=== PATIENT | male | born 1950 | race Caucasian/White ===

== ENCOUNTER 2023-09-18 11:00 | Day surgery (SDC) | payer OTHER ==
[2023-09-13 15:06] LABS: Absolute Basophils 0.1 K/uL (0-0.5); Absolute Eosinophils 0.2 K/uL (0-0.5); Absolute Lymphocytes (CBC) 2.1 K/uL (0.7-4.9); Absolute Neutrophil 5.5 K/uL (1.8-8.0); Basophils % 0.7 % (0-1.3); Eosinophils % 2.4 % (0-4.4); Hematocrit 43.4 % (39.6-49.0); Hemoglobin 14.5 g/dL (13.6-17.9); Lymphocytes % 23.7 % (15.3-44.8); MCH 29.9 pg (27.0-35.0); MCHC 33.4 g/dL (32.0-36.0); MCV 89.5 fL (80-100); MPV 7.8 fL (7.6-11.3); Monocytes % 11.2 % (3.3-12.3); Platelets 272 thou/uL (152-406); RBC Red Blood Cell Count 4.85 M/uL (4.33-5.43); Red Cell Distribution Width 13.3 % (12.1-15.2)
[2023-09-13 15:15] LABS: PT Prothrombin Time 11.6 SECONDS (9.5-12.5); PTT, Activated Partial Thromb 37.7 SECONDS (24.3-36.9); Protime INR 1.06
[2023-09-13 15:24] LABS: Anion Gap 8.3 mEq/L (5.0-15.0); Potassium 3.3 mEq/L (3.5-5.1)
--- NOTE | 2023-09-13 16:43 | RAD REPORT ---
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 Hypertension COMPARISON: 08/09/2022 and 01/09/2021 TECHNIQUE: PA and lateral views of the chest were obtained. FINDINGS: Stable bilateral streaky opacities most pronounced in the left central lower lung, suggest ing chronic opacification/fibrosis. . Background hyperinflation. Heart size is normal and central vas culature is within normal limits. No pleural effusion or pneumothorax seen. No acute bony finding not ed. IMPRESSION: No acute cardiopulmonary process. No significant interval change.
[2023-09-18] MEDS ORDERED: HEPA 1000U/500MLS 2,000 UNIT/1,000 ML BAG IV ONE (11:32)
[2023-09-18] MEDS ORDERED: FENTANYL CITR 100 MCG/2 ML ONE (11:33)
[2023-09-18] MEDS ORDERED: LIDOCAINE 1% 20 ML MDV ONE (11:33)
[2023-09-18] MEDS ORDERED: ATROPINE SULF 1 MG/10 ML SYR IV ONE (11:33)
[2023-09-18] MEDS ORDERED: MIDAZOLAM HCL 2 MG/2 ML INJ ONE (11:33)
[2023-09-18] MEDS ORDERED: VERAPAMIL HCL 10 MG/4 ML VIAL IV ONE (11:33)
[2023-09-18] MEDS ORDERED: TICAGRELOR 90 MG TABLET PO ONE (11:34)
[2023-09-18] MEDS ORDERED: CLOPIDOGREL 75 MG TABLET ONE (11:34)
[2023-09-18] MEDS ORDERED: HEPARIN 5000 UNIT/ML 1 ML VIAL ONE (11:34)
[2023-09-18] MEDS ORDERED: HEPARIN 10,000 UNIT/10 ML VIAL IV ONE (11:34)
[2023-09-18] MEDS ORDERED: ASPIRIN 325 MG TAB ONE (11:35)
[2023-09-18] MEDS ORDERED: NA CHLORIDE 0.9% 500 ML ONE (11:47)
--- NOTE | 2023-09-18 14:16 | OP ---
Date of Procedure: 09/18/2023 Surgeon: AMISH MAY Procedures Performed: 1.Selective coronary angiogram. 2.Left heart catheterization. Indication: Chest pain and abnormal stress test. Access: Right radial artery 6-Ind[place]ian closed with TR band. Complications: None. Bleeding: Less than 50 mL. Anesthesia: Total sedation time was 30 minutes. Description Of Procedure: After risks, benefits, and alternatives were explained, the patient agreed to procedure and signed informed consent. The patient was brought into the cardiac catheterization laboratory, prepped and draped in the usual sterile fashion. Then, I accessed right radial artery us ing pediatric micropuncture kit, placed a 6-Ind[place]ian Slender sheath and took 5-Ind[place]ian [place] 4.0 cathete r over the J-wire into the aortic root, engaged left main and then right coronary artery, took standa rd views and then catheter was pushed over the wire into the LV, measured the LVEDP. Pullback did no t record any gradient. Then I removed the catheter and the sheath and placed TR band with good hemos tasis. Findings: 1.Left main; large and normal. 2.LAD; proximal segment is normal and large. Mid segment becomes moderate size and has focal 50% st enosis. Diagonal 1 branch has proximal 50% stenosis. Rest of LAD appears to be normal. 3.Left circumflex; very large vessel and it becomes a large OM that has proximal 50% to 60% stenosis , but it is very large vessel. The rest of the circumflex is normal. 4.RCA; large and dominant and aneurysmal and proximal 30%, mid 30% to 40% and then luminal irregular ities. 5.LVEDP elevated at 15 mmHg. Conclusion: 1.Moderate coronary artery disease. 2.Elevated LVEDP. Recommendation: Medical management. SR/MODL Voice ID: [id number] Report ID: [id number]
[2023-09-18 14:23] VITALS: TEMP 98.7
[2023-09-18 16:05] VITALS: BP 152/74; O2SAT 97
== END 2023-09-18 15:45 | disposition home or self-care (01) ==
LOC: CCL 11:00
PROVIDERS: ATTEND Internal Medicine
DX: I25.110 Atherosclerotic heart disease of native coronary artery with unstable angina pectoris (principal); I65.23 Occlusion and stenosis of bilateral carotid arteries; I10 Essential (primary) hypertension; E78.2 Mixed hyperlipidemia; I77.819 Aortic ectasia, unspecified site; Z79.899 Other long term (current) drug therapy
CPT/HCPCS: 36415; 71046; 76937; 80048; 85025; 85610; 85730; 93005; 93458; 99152; 99153; C1893; J0461; J1644; J2001; J2250; J3010; J7040; Q9966